=== PATIENT | female | born 1980 | race Caucasian/White ===

== ENCOUNTER 2018-04-03 10:54 | Inpatient (IN) | payer MEDICAID ==
[2018-04-03] MEDS ORDERED: OXYTOCIN 30 UNITS/LR 500 ML IV ×2 (11:34→12:00)
[2018-04-03] MEDS: LACTATED RINGER'S 1,000 ML IV (11:53)
[2018-04-03] MEDS ORDERED: IBUPROFEN 600 MG TAB PO (12:00)
[2018-04-03] MEDS ORDERED: OXYCODONE/ACETAMINOPHEN (5/325) TAB PO (12:00)
[2018-04-03] MEDS ORDERED: METHYLERGONOVINE 0.2 MG INJ IM (12:00)
[2018-04-03] MEDS ORDERED: BUTORPHANOL 2 MG INJ IV (12:00)
[2018-04-03] MEDS ORDERED: BUTORPHANOL 1 MG INJ IV (12:00)
[2018-04-03] MEDS ORDERED: LIDOCAINE 1% (MPF) 30 ML INJ INJ (12:00)
[2018-04-03] MEDS ORDERED: CARBOPROST 250 MCG INJ IM (12:00)
[2018-04-03] MEDS ORDERED: OXYCODONE/ASPIRIN (4.88/325) TAB PO ×3 (12:00→15:00)
[2018-04-03] MEDS ORDERED: FENTAnyl 50 MCG/ML VIAL IV (12:00)
[2018-04-03] MEDS ORDERED: MISOPROSTOL 200 MCG TAB PR (12:00)
[2018-04-03 12:25] LABS: ADD MAN DIFF? NO
[2018-04-03 12:29] LABS: WHITE BLOOD COUNT 11.8 10^3/ul (4.8-10.8)
[2018-04-03 12:29] LABS: BASOPHILS % 0.3 % (0.0-2.0); EOSINOPHILS # 0.1 10^3/ul (0.0-0.5); EOSINOPHILS % 0.4 % (0.0-7.0); HEMATOCRIT 41.5 % (37.0-47.0); HEMOGLOBIN 13.9 g/dl (12.0-16.0); LYMPHOCYTES # 2.1 10^3/ul (0.8-2.9); MEAN CORPUSCULAR HGB CONC 33.5 g/dl (32.0-37.0); MEAN CORPUSCULAR VOLUME 89.4 fl (82.0-101.0); MEAN PLATELET VOLUME 11.5 fl (7.4-10.4); MONOCYTE # 0.8 10^3/ul (0.3-0.9); MONOCYTES % 6.3 % (0.0-11.0); NEUTROPHIL # 8.8 10^3/ul (1.6-7.5); NEUTROPHILS % 74.5 % (39.0-77.0); PLATELET COUNT 223 10^3/UL (140-415); RED BLOOD COUNT 4.64 10^6/ul (4.20-5.40); RED CELL DISTRIBUTION WIDTH 13.9 % (11.5-14.5)
[2018-04-03 12:51] LABS: ALANINE AMINOTRANSFERASE 11 IU/L (13-69); ALBUMIN 3.7 g/dl (3.3-4.9); ALBUMIN/GLOBULIN RATIO 1.54; ALKALINE PHOSPHATASE 176 IU/L (42-121); ANION GAP 13 (5-13); ASPARTATE AMINO TRANSFERASE 19 IU/L (15-46); BILIRUBIN,INDIRECT 0.4 mg/dl (0-1.1); BILIRUBIN,TOTAL 0.4 mg/dl (0.2-1.3); BLOOD UREA NITROGEN 10 mg/dl (7-20); CALCIUM 9.5 mg/dl (8.4-10.2); CARBON DIOXIDE 19 mmol/L (21-31); CHLORIDE 108 mmol/L (97-110); CREATININE 0.71 mg/dl (0.44-1.00); Estimated GFR > 60 mL/min (>60); GLUCOSE 82 mg/dl (70-220); POTASSIUM 4.4 mmol/L (3.5-5.1); SODIUM 140 mmol/L (135-144); TOTAL PROTEIN 6.1 g/dl (6.1-8.1)
[2018-04-03 12:59] LABS: INR 0.85; PARTIAL THROMBOPLASTIN TIME 29.1 Sec (23.0-35.0); PROTIME 11.7 Sec (11.9-14.9); PT RATIO 0.9
[2018-04-03 13:21] LABS: HEPATITIS B SURFACE ANTIGEN NEGATIVE (NEGATIVE)
[2018-04-03] MEDS: OXYTOCIN 30 UNITS/LR 500 ML IV ×4 (14:24→16:35)
[2018-04-03] MEDS ORDERED: ONDANSETRON 4 MG INJ IV (15:00)
[2018-04-03] MEDS ORDERED: ACETAMINOPHEN 325 MG TAB PO (15:00)
[2018-04-03] MEDS ORDERED: HYDROCODONE/APAP (5/325) TAB PO (15:00)
[2018-04-03] MEDS: BENZOCAINE 20% 56 ML SPRAY TOP (16:31)
[2018-04-03] MEDS: WITCH HAZEL/GLYCERIN PAD PR (16:31)
[2018-04-03] MEDS: LANOLIN 7 GM TUBE TOP (16:32)
[2018-04-03 17:24] LABS: RAPID PLASMA REAGIN NONREACTIVE (NR)
[2018-04-03] MEDS: IBUPROFEN 600 MG TAB PO ×2 (17:24→23:58)
[2018-04-03] MEDS: SENNA/DOCUSATE NA (8.6MG/50MG) TAB PO (21:06)
[2018-04-04] MEDS: IBUPROFEN 600 MG TAB PO ×3 (05:50→17:26)
[2018-04-04 07:30] LABS: ADD MAN DIFF? NO
[2018-04-04 07:36] LABS: BASOPHILS % 0.3 % (0.0-2.0); EOSINOPHILS # 0.1 10^3/ul (0.0-0.5); HEMATOCRIT 33.7 % (37.0-47.0); HEMOGLOBIN 11.2 g/dl (12.0-16.0); LYMPHOCYTES # 2.7 10^3/ul (0.8-2.9); LYMPHOCYTES % 23.2 % (15.0-51.0); MEAN CORPUSCULAR HEMOGLOBIN 30.1 pg (29.0-33.0); MEAN CORPUSCULAR HGB CONC 33.2 g/dl (32.0-37.0); MEAN CORPUSCULAR VOLUME 90.6 fl (82.0-101.0); MEAN PLATELET VOLUME 10.9 fl (7.4-10.4); MONOCYTE # 0.8 10^3/ul (0.3-0.9); MONOCYTES % 7.3 % (0.0-11.0); NEUTROPHIL # 7.9 10^3/ul (1.6-7.5); NEUTROPHILS % 67.9 % (39.0-77.0); PLATELET COUNT 191 10^3/UL (140-415); RED BLOOD COUNT 3.72 10^6/ul (4.20-5.40); RED CELL DISTRIBUTION WIDTH 14.3 % (11.5-14.5)
[2018-04-04 07:36] LABS: WHITE BLOOD COUNT 11.6 10^3/ul (4.8-10.8)
[2018-04-04] MEDS: HYDROCODONE/APAP (5/325) TAB PO (08:24)
[2018-04-04] MEDS: SENNA/DOCUSATE NA (8.6MG/50MG) TAB PO ×2 (08:25→21:00)
[2018-04-05] MEDS: IBUPROFEN 600 MG TAB PO ×3 (00:53→12:31)
[2018-04-05] MEDS: SENNA/DOCUSATE NA (8.6MG/50MG) TAB PO (09:21)
[2018-04-05] MEDS: MEASLES,MUMPS,RUBELLA VACCINE INJ SC* (09:50)
== END 2018-04-05 14:47 | disposition home or self-care (01) | DRG 807 ==
LOC: L-D 10:54 → PP1 15:10
PROC: 10E0XZZ Delivery of Products of Conception, External Approach (ICD-10-PCS; principal; 2018-04-03)
PROC: 4A1HXCZ Monitoring of Products of Conception, Cardiac Rate, External Approach (ICD-10-PCS; 2018-04-03)
DX: O69.81X0 Labor and delivery complicated by cord around neck, without compression, not applicable or unspecified (principal); Z37.0 Single live birth; Z3A.39 39 weeks gestation of pregnancy
CPT/HCPCS: 80053; 85025; 85384; 85610; 85730; 86592; 86850; 86900; 86901; 87340